=== PATIENT | female | born 1945 | race Caucasian/White ===

== ENCOUNTER → 2016-08-30 | Outpatient (REF) | payer MEDICARE ==
[~2016-08-30] MED LIST: ALLO15TA OR; AMLO5TAB2 PO; AREDS 2 OR; ASPI1TAB PO; COUM1TAB17 PO; COUM2.5T11 PO; DIAZ5TAB PO; GLYB5TA PO; IRBE300T10 PO; LEVO150T7 PO; LEXA1TAB2 PO; LIPI80TA PO; MELO15TA4 PO; METF500T PO; PERC5TAB6 PO; PRIL20CA9 PO; TYLE325T5 PO; VITA100037 PO; albuterol inhaler INH; levemir flexpen SC; metoprolol OR; novolog insulin SC; prochlorperazine OR; vicodin OR
[2016-08-30 12:04] LABS: FREE T4 1.52 NG/DL (0.76-1.46)
== END ==
LOC: M LABDRAW1 11:03
PROVIDERS: ATTEND Physician Assistant Medical
DX: E11.22 Type 2 diabetes mellitus with diabetic chronic kidney disease (principal); Z51.81 Encounter for therapeutic drug level monitoring; Z79.899 Other long term (current) drug therapy

== ENCOUNTER → 2016-08-30 | Outpatient (REF) | payer MEDICARE ==
[2016-08-30 12:00] LABS: ALBUMIN 3.8 GM/DL (3.2-5.2); BILIRUBIN,TOTAL 0.8 MG/DL (0.2-1.0); CALCIUM LEVEL 8.8 MG/DL (8.8-10.2); CREATININE FOR GFR 1.09 MG/DL (0.55-1.02); POTASSIUM SERUM 4.1 MEQ/L (3.5-5.1); TOTAL PROTEIN 7.6 GM/DL (6.4-8.2)
== END ==
LOC: M LABDRAW1 11:05
PROVIDERS: ATTEND Student in an Organized Health Care Education/Training Program
DX: Z51.81 Encounter for therapeutic drug level monitoring (principal); Z79.899 Other long term (current) drug therapy

== ENCOUNTER → 2016-10-23 | Outpatient (REF) | payer MEDICARE ==
[2016-10-23 13:14] LABS: ALBUMIN/GLOBULIN RATIO 1.08 (1.00-1.93); ALKALINE PHOSPHATASE 64 U/L (45-117); ALT/SGPT 42 U/L (12-78); ANION GAP 7 MEQ/L (8-16); AST/SGOT 30 U/L (15-37); BILIRUBIN,TOTAL 0.9 MG/DL (0.2-1.0); BLOOD UREA NITROGEN 22 MG/DL (7-18); CALCIUM LEVEL 8.6 MG/DL (8.8-10.2); CARBON DIOXIDE LEVEL 27 MEQ/L (21-32); CHLORIDE LEVEL 103 MEQ/L (98-107); CREATININE FOR GFR 1.12 MG/DL (0.55-1.02); GLOMERULAR FILTRATION RATE 51.3 (>45); GLUCOSE, FASTING 256 MG/DL (80-110); IMMUNOGLOBULIN G 1450 MG/DL (681-1648); POTASSIUM SERUM 3.8 MEQ/L (3.5-5.1); SODIUM LEVEL 137 MEQ/L (136-145); TOTAL PROTEIN 7.7 GM/DL (6.4-8.2); URIC ACID 4.6 MG/DL (2.6-6.0)
[2016-10-23 13:28] LABS: BASO % 0.3 % (0.0-1.0); EOS # 0.1 K/mm3 (0.0-0.50); EOS % 1.9 % (0.0-3.0); LARGE UNSTAINED CELL # 0.1 K/mm3 (0.0-0.4); LARGE UNSTAINED CELL % 1.1 % (0.0-4.0); LYMPH # 1.4 K/mm3 (1.5-4.5); LYMPH % 22.9 % (24.0-44.0); MEAN CORPUSCULAR HEMOGLOBIN 31.2 pg (27.0-33.0); MEAN CORPUSCULAR HGB CONC 32.6 g/dl (32.0-36.5); MEAN CORPUSCULAR VOLUME 95.8 fl (80.0-96.0); MONO # 0.3 K/mm3 (0.0-0.8); MONO % 5.8 % (0.0-5.0); NEUTROPHILS # 3.9 K/mm3 (1.8-7.7); NEUTROPHILS % 67.9 % (36.0-66.0); PLATELET COUNT, AUTOMATED 168 k/mm3 (150-450); WHITE BLOOD COUNT 5.7 K/mm3 (4.0-10.0)
[2016-10-23 15:52] LABS: ERYTHROCYTE SEDIMENTATION RATE 49 mm/hr (0-30)
[2016-10-25 00:08] LABS: Lyme Disease IgG/IgM Antibodie <0.91 ISR (0.00-0.90); Lyme Disease IgM Ab Quantitati <0.80 index (0.00-0.79)
== END ==
LOC: M LABDRAW1 12:09
PROVIDERS: ATTEND Internal Medicine Rheumatology
DX: M35.9 Systemic involvement of connective tissue, unspecified (principal); Z79.899 Other long term (current) drug therapy; E79.0 Hyperuricemia without signs of inflammatory arthritis and tophaceous disease; N18.3 Chronic kidney disease, stage 3 (moderate)

== ENCOUNTER → 2016-11-21 | Outpatient (REF) | payer MEDICARE ==
[2016-11-21 12:48] LABS: FREE T4 1.24 NG/DL (0.76-1.46)
== END ==
LOC: M LABDRAW1 11:27
PROVIDERS: ATTEND Student in an Organized Health Care Education/Training Program
DX: E11.22 Type 2 diabetes mellitus with diabetic chronic kidney disease (principal)

== ENCOUNTER → 2017-05-30 | Outpatient (CLI) | payer MEDICARE ==
[~2017-05-30] MED LIST changes: -COUM2.5T11 PO; +COUM2.5T17 PO; -METF500T PO; +METF500T13 PO; +PERC5TAB12 PO; -PERC5TAB6 PO; -VITA100037 PO; +VITA100067 PO
--- NOTE | 2017-05-30 15:31 | REPMRS ---
Patient History The patient states she has not had a clinical breast exam in over a year. Patient is postmenopausal and had first child at age 36. Family history of colorectal cancer in paternal grandmother at age 50 or over. Digital Woman Screen Mammo: May 30, 2017 - Exam #: [id number] Bilateral CC and MLO view(s) were taken. Technologist: Katherine Kendrick, Technologist Prior study comparison: March 11, 2016, digital bilateral screening mammo, performed at [facility]. January 23, 2012, digital bilateral screening mammo, performed at [facility]. FINDINGS: The breast tissue is almost entirely fat. There has been no change in the appearance of the mammogram from the prior studies. There is no interval development of dominant mass, architectural distortion, or clustered microcalcification typical of malignancy. ASSESSMENT: BI-RADS/ACR category 1 mammogram. Negative. Recommendation Routine screening mammogram of both breasts in 1 year (for women over age 40). This mammogram was interpreted with the aid of an FDA-approved computer-aided dectection system. Electronically Signed By: Chele Guardado MD 05/30/17 0418
== END ==
LOC: M WHC 13:14
PROVIDERS: ATTEND Student in an Organized Health Care Education/Training Program
DX: Z12.31 Encounter for screening mammogram for malignant neoplasm of breast (principal)

== ENCOUNTER → 2017-08-08 | Outpatient (REF) | payer MEDICARE | LOC: M SFHCWAGY 10:27 | DX: Z12.4 Encounter for screening for malignant neoplasm of cervix (principal); B49 Unspecified mycosis | CPT/HCPCS: G0123 ==

== ENCOUNTER → 2017-11-10 | Outpatient (REF) | payer MEDICARE ==
[2017-11-10 12:06] LABS: HEMOGLOBIN 12.1 g/dl (12.0-15.5); MEAN CORPUSCULAR HEMOGLOBIN 30.9 pg (27.0-33.0); MEAN CORPUSCULAR HGB CONC 32.7 g/dl (32.0-36.5); MEAN CORPUSCULAR VOLUME 94.4 fl (80.0-96.0); PLATELET COUNT, AUTOMATED 168 10^3/uL (150-450); RED BLOOD COUNT 3.92 10^6/uL (4.00-5.40); RED CELL DISTRIBUTION WIDTH 13.8 % (11.5-14.5); WHITE BLOOD COUNT 5.3 10^3/uL (4.0-10.0)
[2017-11-10 12:32] LABS: FOLATE 16.1 NG/ML; VITAMIN B12 LEVEL 1079 PG/ML
[2017-11-10 12:34] LABS: FREE T4 1.26 NG/DL (0.76-1.46)
[2017-11-10 13:24] LABS: ALBUMIN/GLOBULIN RATIO 0.98 (1.00-1.93); ALKALINE PHOSPHATASE 58 U/L (45-117); ALT/SGPT 41 U/L (12-78); ANION GAP 11 MEQ/L (8-16); AST/SGOT 27 U/L (7-37); BILIRUBIN,TOTAL 0.7 MG/DL (0.2-1.0); BLOOD UREA NITROGEN 27 MG/DL (7-18); CALCIUM LEVEL 9.3 MG/DL (8.8-10.2); CARBON DIOXIDE LEVEL 23 MEQ/L (21-32); CHLORIDE LEVEL 107 MEQ/L (98-107); CHOLESTEROL LEVEL 165 MG/DL (<200); CHOLESTEROL RISK RATIO 4.342 (<5); CREATININE FOR GFR 1.23 MG/DL (0.55-1.30); FERRITIN 94 NG/ML (8-252); GLOMERULAR FILTRATION RATE 45.8 (>39); GLUCOSE, FASTING 206 MG/DL (70-100); HDL CHOLESTEROL 38 MG/DL (>40); IRON (FE) 57 UG/DL (50-170); LDL CHOLESTEROL 92.4 MG/DL (<100); NON-HDL-C 127 MG/DL; PERCENT SATURATION 19.3 % (13.2-45.0); POTASSIUM SERUM 4.2 MEQ/L (3.5-5.1); SODIUM LEVEL 141 MEQ/L (136-145); TOTAL IRON BINDING CAPACITY 296 UG/DL (250-450); TOTAL PROTEIN 8.1 GM/DL (6.4-8.2); TRIGLYCERIDES LEVEL 173 MG/DL (<150)
== END ==
LOC: M SFHCPLAZ 10:00
DX: E03.9 Hypothyroidism, unspecified (principal); D64.9 Anemia, unspecified; Z71.89 Other specified counseling; Z51.81 Encounter for therapeutic drug level monitoring; Z79.899 Other long term (current) drug therapy
CPT/HCPCS: 82746

== ENCOUNTER 2017-12-08 07:04 | Day surgery (SDC) | payer MEDICARE ==
[~2017-12-08 07:04] MED LIST changes: +ACETAMINOPHEN 325 MG TAB PO; -ALLO15TA OR; -AMLO5TAB2 PO; -AREDS 2 OR; -ASPI1TAB PO; -COUM1TAB17 PO; -COUM2.5T17 PO; -DIAZ5TAB PO; -GLYB5TA PO; -IRBE300T10 PO; -LEVO150T7 PO; -LEXA1TAB2 PO; -LIPI80TA PO; -MELO15TA4 PO; -METF500T13 PO; -PERC5TAB12 PO; +PHENYLEPHRINE HCL 10 % OPHTH. SOL 5ML OD; -PRIL20CA9 PO; -TYLE325T5 PO; -VITA100067 PO; -albuterol inhaler INH; -levemir flexpen SC; -metoprolol OR; -novolog insulin SC; -prochlorperazine OR; -vicodin OR
[2017-12-08] MEDS: OFLOXACIN 0.3 % (OCUFLOX) OPTH SOL 5ML OD (10:00)
[2017-12-08] MEDS: CYCLOPENTOLATE 2% OPHTH SOLN 2ML BTL OD (10:14)
[2017-12-08] MEDS: TROPICAMIDE 1% OPHTH SOLN 2ML OD (10:14)
[2017-12-08] MEDS: PHENYLEPHRINE 2.5% OPHTH SOL 2ML OD (10:14)
[2017-12-08] MEDS: LIDOCAINE 3.5 % 1ML OPHTH TOPICAL GEL OU (10:14)
[2017-12-08 10:25] LABS: BEDSIDE GLUCOSE 263 MG/DL (83-110)
[2017-12-08] MEDS: HumaLOG INSULIN (NovoLOG) PER UNIT SC (11:00)
[2017-12-08] MEDS: POVIDONE-IODINE 5% OPHTH PREP SOL 30ML As Ordered (11:06)
[2017-12-08] MEDS ORDERED: fentaNYL 100 MCG/2 ML INJECTION (J3010) As Ordered (12:01)
[2017-12-08] MEDS ORDERED: MIDAZOLAM INJ 2 MG/2 ML VIAL (J2250) As Ordered (12:01)
[2017-12-08] MEDS ORDERED: PROPOFOL 200 MG/20 ML VIAL As Ordered (12:03)
[2017-12-08] MEDS: MOXIFLOXACIN IN BSS 0.25MG/0.25ML INTRACAMERAL INJ (OR EYE ONLY)(J2280) As Ordered (12:10)
[2017-12-08] MEDS: BSS with VANC/TOB/EPI for EYE CASES IR (12:16)
[2017-12-08] MEDS: TRIAMCINOLONE PRES FR 40 MG/ML 1ML(TRIESENCE)(OR EYE ONLY)(J3300 PER 1MG) As Ordered (12:16)
[2017-12-08] MEDS: HEALON DUET (HEALON 10MG/ML 0.55ML & HEALON ENDOCOAT 30MG/ML 0.85ML) As Ordered (12:16)
[2017-12-08] MEDS: LIDOCAINE 2% W/EPIN INJ 20ML **PRES FREE As Ordered (12:16)
[2017-12-08] MEDS: LIDOCAINE 1% SDV 5 ML VIAL As Ordered (12:16)
[2017-12-08] MEDS: AcetaZOLAMIDE 500 MG ER CAP PO (12:45)
[2017-12-08] MEDS ORDERED: ONDANSETRON 4MG/2ML VIAL (J2405) IV (12:45)
[2017-12-08] MEDS ORDERED: LR 1,000 ML IV (12:45)
[2017-12-08] MEDS ORDERED: TRIMETHOBENZAMIDE 300 MG CAP PO (12:45)
[2017-12-08] MEDS ORDERED: ACETAMINOPHEN TAB 650MG DOSE (2X325MG) PO (12:45)
== END 2017-12-08 12:53 | disposition home or self-care (01) ==
LOC: M SDC 07:04
DX: H26.9 Unspecified cataract (principal); E11.22 Type 2 diabetes mellitus with diabetic chronic kidney disease; E11.40 Type 2 diabetes mellitus with diabetic neuropathy, unspecified; I12.9 Hypertensive chronic kidney disease with stage 1 through stage 4 chronic kidney disease, or unspecified chronic kidney disease; E78.2 Mixed hyperlipidemia; R06.2 Wheezing; E03.9 Hypothyroidism, unspecified; F41.9 Anxiety disorder, unspecified; F32.9 Major depressive disorder, single episode, unspecified; M19.90 Unspecified osteoarthritis, unspecified site; N18.3 Chronic kidney disease, stage 3 (moderate); Z79.899 Other long term (current) drug therapy; Z79.4 Long term (current) use of insulin; Z79.82 Long term (current) use of aspirin; Z87.891 Personal history of nicotine dependence; Z88.8 Allergy status to other drugs, medicaments and biological substances; Z88.1 Allergy status to other antibiotic agents; Z91.048 Other nonmedicinal substance allergy status
CPT/HCPCS: 66984

== ENCOUNTER → 2017-12-22 | Outpatient (REF) | payer MEDICARE ==
[2017-12-22 15:22] LABS: FREE T4 1.11 NG/DL (0.76-1.46)
== END ==
LOC: M LABDRAW1 14:22
DX: E03.9 Hypothyroidism, unspecified (principal)
CPT/HCPCS: 84443

== ENCOUNTER → 2018-10-29 | Outpatient (REF) | payer MEDICARE ==
[~2018-10-29] MED LIST changes: -ACETAMINOPHEN 325 MG TAB PO; +ALLO300T2 OR; +AMLO5TAB6 PO; +AREDS 2 OR; +ASPI81TA26 PO; +CALC1CAP31; +COUM1TAB17 PO; +COUM2.5T17 PO; +DIAZ5TAB PO; +DULO1CAP3; +GABA-1171 PO; +GLYB-147 PO; +IRBE300T10 PO; +LEVE1INJ5 SC; +LEVO137T2 PO; +LEVO150T7 PO; +LEXA1TAB2 PO; +LIPI80TA PO; +MELO15TA28 PO; +METF500T13 PO; +METO25TA4 PO; +PERC5TAB12 PO; -PHENYLEPHRINE HCL 10 % OPHTH. SOL 5ML OD; +PRIL20CA9 PO; +TRAM50TA2; +TYLE325T5 PO; +VENTAER INH; +VITA100067 PO; +albuterol inhaler INH; +levemir flexpen SC; +metoprolol OR; +novolog insulin SC; +prochlorperazine OR; +vicodin OR
[2018-10-29 12:52] LABS: BASO % 0.6 % (0.0-1.0); EOS # 0.2 10^3/uL (0.0-0.50); EOS % 2.7 % (0.0-3.0); HEMOGLOBIN 12.6 g/dl (12.0-15.5); LYMPH # 2.1 10^3/uL (1.5-4.5); LYMPH % 31.2 % (24.0-44.0); MEAN CORPUSCULAR HEMOGLOBIN 30.7 pg (27.0-33.0); MEAN CORPUSCULAR HGB CONC 32.3 g/dl (32.0-36.5); MEAN CORPUSCULAR VOLUME 95.1 fl (80.0-96.0); MONO # 0.5 10^3/uL (0.0-0.8); MONO % 6.9 % (0.0-5.0); NEUTROPHILS # 3.9 10^3/uL (1.8-7.7); NEUTROPHILS % 58.2 % (36.0-66.0); PLATELET COUNT, AUTOMATED 186 10^3/uL (150-450); WHITE BLOOD COUNT 6.7 10^3/uL (4.0-10.0)
[2018-10-29 12:54] LABS: THYROID STIMULATING HORMONE 0.695 uIU/ML (0.358-3.740)
[2018-10-29 12:55] LABS: VITAMIN B12 LEVEL 1966 PG/ML (247-911)
[2018-10-29 12:56] LABS: FOLATE 9.5 NG/ML (>5.4)
== END ==
LOC: M SFHCPLAZ 09:15 → M LABDRAW1 09:15
PROVIDERS: ATTEND Family Medicine
DX: G62.9 Polyneuropathy, unspecified (principal); E03.9 Hypothyroidism, unspecified